=== PATIENT | female | born 1990 ===

== ENCOUNTER → 2017-12-13 | Outpatient (CLI) | payer BC ==
[2018-01-13 14:49] LABS: CHLAMYDIA TRACHOMATIS, NAA Negative (Negative); NEISSERIA GONORRHOEAE, NAA Negative (Negative)
== END | disposition home or self-care (01) ==
LOC: LAB SHORT 15:58 → LAB 15:58
PROVIDERS: Advanced Practice Midwife
DX: Z01.419 Encounter for gynecological examination (general) (routine) without abnormal findings (principal); Z11.3 Encounter for screening for infections with a predominantly sexual mode of transmission
CPT/HCPCS: 87491; 87591; G0123

== ENCOUNTER → 2018-01-12 | Outpatient (CLI) | payer BC | LOC: LAB SHORT 16:39 → LAB 16:39 | DX: N92.6 Irregular menstruation, unspecified (principal) | CPT/HCPCS: 81025 ==